=== PATIENT | male | born 1985 | race Caucasian/White ===

== ENCOUNTER 2017-08-13 16:26 | Emergency (ER) | payer OTHER ==
[~2017-08-13] VITALS: Ht 185.4 cm; Wt 151.5 kg
[~2017-08-13 16:26] MED LIST: BND25 PO; CETI10TA84 PO; CYCL10TA6 PO; EPIN1INJ33 IM; PRED20TA PO; TRAZ50TA35 PO; [UNRECOGNIZED DRUG - CODE] OPB
[2017-08-13 16:37] VITALS: TEMP 36.9; Ht 185.4 cm; Wt 151.5 kg
[2017-08-13] MEDS ORDERED: EPP3/2 IM (17:00)
--- NOTE | 2017-08-13 17:18 | DIAGNOSTIC IMAGING REPORT ---
L FOREARM 2 VIEWS ROUTINE CLINICAL HISTORY: Pop in left forearm. Hand numbness. COMPARISON: None FINDINGS: No acute fracture of the left radius or ulna is identified. Alignment of left elbow is anatomic and there is no left elbow joint effusion. IMPRESSION: No acute fracture of the left radius or ulna. Electronically signed by: Renan Johnson M.D. 08/13/2017 5:17 PM Dictated Date/Time: 08/13/2017 5:14 PM
--- NOTE | 2017-08-13 17:24 | EMERGENCY ROOM VISIT NOTE ---
History First contact with patient: 16:47 Chief Complaint: ARM PAIN Stated Complaint: HAND NUMBNESS,ARM PAIN History of Present Illness The patient is a [id number] 31 year old male who presents to the Emergency Room with complaints of "hand numbness, arm pain". 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 He notes the entire left hand is numb. There is decreased traffic inspector strength of the left hand. He rates the pain as a 4/10. He also notes some stiffness in the left shoulder/left neck region. Review of Systems A complete 6-point Review of Systems was discussed with the patient, with pertinent positives and negatives listed in the History of Present Illness. All remaining Review of Systems questions can be considered negative unless otherwise specified. Past Medical/Surgical History Medical Problems: (1) Asthma (2) Bronchitis (3) Cluster headaches (4) Reactive airway disease Surgical Problems: (1) S/P tonsillectomy Family History Cancer Diabetes mellitus Gallbladder disease Heart disease Hypertension Kidney disease Kidney stones Lung disease Social History Smoking Status: Former Smoker Alcohol Use: occasionally Drug Use: none Marital Status: single Housing Status: lives with friends Occupation Status: employed Current/Historical Medications Scheduled PRN Cetirizine (Zyrtec), 10 MG PO DAILY PRN for Allergy Symptoms Cyclobenzaprine Hcl (Flexeril), 10 MG PO TID PRN for Muscle Spasms Dexamethasone (Ophth) (Maxidex), 1 DROP OPB Q6H PRN for UNDECIDED Diphenhydramine Hcl (Benadryl), 50-100 MG PO Q4H PRN for Allergy Symptoms Epinephrine (Epipen), 0.3 MG IM UD PRN for ALLERGIC REACTION Prednisone (Prednisone), 40 MG PO UD PRN for Severe Swelling Trazodone Hcl (Trazodone), 50-100 MG PO HS PRN for Sleep Physical Exam Vital Signs Date Time Temp Pulse Resp B/P (MAP) Pulse Ox O2 Delivery O2 Flow Rate FiO2 08/13/17 17:38 96 16 174/104 97 08/13/17 16:37 36.9 107 20 160/100 97 Room Air Physical Exam VITAL SIGNS - Vital signs and nursing notes were reviewed. Stable. Hypertensive. GENERAL -31-year-old male appearing his stated age who is in no acute distress. Communicates well with provider and answers questions appropriately. SKIN - Without rashes. Skin overlying forearm is unremarkable. HEAD - NC/AT. NECK - Neck with FROM. No nuchal rigidity. No C spine tenderness. Slight tenderness to superior trapezius muscle. LUNGS - Chest wall symmetric without accessory muscle use, intercostals retractions, or central cyanosis. Normal vesicular breath sounds CTA B/L. No wheezes, rales, or rhonchi appreciated. CARDIAC - RRR with S1/S2. No murmur, rubs, or gallops appreciated. EXTREMITIES - No clubbing or peripheral cyanosis. No pretibial edema present. + 5/5 strength noted in UE/LE bilaterally grossly with slight decrease in left hand traffic inspector strength. NEUROLOGIC - Cranial nerves II through XII grossly intact. Sensory intact to light touch throughout. Bicipital reflex intact. Medical Decision & Procedures ER Provider Diagnostic Interpretation: L FOREARM 2 VIEWS ROUTINE CLINICAL HISTORY: Pop in left forearm. Hand numbness. COMPARISON: None FINDINGS: No acute fracture of the left radius or ulna is identified. Alignment of left elbow is anatomic and there is no left elbow joint effusion. IMPRESSION: No acute fracture of the left radius or ulna. Electronically signed by: Renan Johnson M.D. 08/13/2017 5:17 PM Dictated Date/Time: 08/13/2017 5:14 PM Medical Decision Patient was seen and evaluated as above. He presents to us today with pain in the left forearm. Left hand is numb. This was reproducible with palpation overlying the left ulnar nerve region. I suspect he likely has poor muscle, and has some nerve irritation. There appears to be no etiology from the neck. No emergent or surgical process. This time he appears stable for outpatient management. We placed in an arm sling, and is followed with a workman's comp individual. He was educated upon management, educated upon worrisome symptoms which to return, had questions answered prior to discharge, and was discharged home in good condition. He is to not use the left upper extremity until seen and cleared by approved workmans compensation individual. In the evaluation and treatment of this patient, the following differential diagnoses were considered: Shoulder Contusion, Shoulder Fracture, Shoulder Dislocation, Thoracic Outlet Syndrome, Adhesive Capsulitis, Rotator Cuff Tear, Proximal Clavicle Head Fracture, Apical Pneumonia, Pneumothorax, Hemothorax, or TB. Impression Primary Impression: Arm pain, left Departure Information Dispostion Home / Self-Care Condition GOOD Referrals No Doctor, Assigned (PCP) Olaf Lang, DO Patient Instructions My [facility] Additional Instructions You have been treated in the Emergency Department for Shoulder Pain and hand numbness. For pain control, you can use the following [id number] medicines (if >12 yo): - Regular strength (325mg/tab) Tylenol (acetaminophen) 2 tabs every 4-6 hours as needed. Do not exceed 12 tablets in a 24 hour period. Avoid taking more than 3 grams (3000 mg) of Tylenol per day. This includes any other sources of acetaminophen you may take on a regular basis. - Regular strength (200 mg/tab) Advil (ibuprofen) 1-2 tabs every 4-6 hours as needed. Do not exceed a dose of 3200 mg per day. If this is a recent injury (<24 hrs), ice can be applied to the area of pain for the first 3 days to help decrease pain and inflammation. You have been provided the number for an Orthopaedic Surgeon. You should call this number as soon as possible to establish a follow-up visit from today's Emergency Department visit. Please follow with the approved Workmen's Compensation individual. Keep the shoulder brace/sling in place until evaluated by Orthopedics. Continue to perform range of motion exercises several times per day to help prevent the development of a "frozen shoulder". Return to the Emergency Department if your current symptoms worsen despite treatment course outlined above, or if you develop any of the following symptoms : intractable pain despite aforementioned treatment course or new onset of numbness or tingling of the arm. Please return with any new/concerning symptoms.
[2017-08-13 17:38] VITALS: BP 174/104; PULSE 96; O2SAT 97
== END 2017-08-13 17:39 | disposition home or self-care (01) ==
LOC: C.EDB 16:27 → C.EDD 17:39
DX: M79.632 Pain in left forearm (principal); R20.0 Anesthesia of skin; R03.0 Elevated blood-pressure reading, without diagnosis of hypertension; J45.909 Unspecified asthma, uncomplicated; Z87.891 Personal history of nicotine dependence; Z83.3 Family history of diabetes mellitus; Z82.49 Family history of ischemic heart disease and other diseases of the circulatory system; Z84.1 Family history of disorders of kidney and ureter